=== PATIENT | male | born 1985 | race Two or more races ===

== ENCOUNTER 2025-03-15 16:18 | Emergency (ER) | payer MEDICAID, SELFPAY ==
[2025-03-15 16:33] VITALS: BP 147/98; PULSE 78; RESP 17; TEMP 36.4; O2SAT 95; BMI 29.0
--- NOTE | 2025-03-15 16:40 | XR_ITS ---
Examination: CT abdomen and pelvis without contrast. Coronal 3-D reconstructions. Sagittal 2-D reconstructions. Date and time of exam:March 15, 2025 1716 hours INDICATIONS: Onset right flank pain today CTDI: vol (mGy): 7.78 DLP: (mGycm): 482 Technique: Axial images of the abdomen have been obtained, 3 mm slice thickness Intravenous contrast material has not been administered. Low dose protocols were performed. One or more of the following dose reduction techniques were used; automated exposure control, adjustment of the mA and/or KV according to patient size, use of iterative reconstruction technique. Findings: No focal liver or splenic lesions No gallstones No pancreatic or adrenal mass Bilateral renal calculi ranging in size from 1 to 3 mm Mild right hydronephrosis, 3 mm distal right ureterovesical junction calculus Normal appendix Aorta normal size. No bowel obstruction No diverticulitis Contracted urinary bladder IMPRESSION: Mild right hydronephrosis secondary to 3 mm distal right ureterovesical junction calculus
--- NOTE | 2025-03-15 16:40 | PD.EDRME ---
Rapid Medical Screening Exam RME Arrival date/time: 03/15/25 16:18 39-year-old male with no known medical history presents to the emergency room with a chief complaint of right-sided flank pain that radiates down to his right groin x 1 day I have greeted and performed a focused initial assessment of this patient. A comprehensive ED assessment and evaluation of the patient, analysis of all test results, and completion of the medical decision making process will be conducted by additional ED providers. Chief Complaint: Abdominal Pain Time Seen by Provider: 03/15/25 16:28 Vital signs: Vital Signs Temperature 97.5 F 03/15/25 16:33 Pulse Rate 78 03/15/25 16:33 Respiratory Rate 17 03/15/25 16:33 Blood Pressure 147/98 H 03/15/25 16:33 Pulse Oximetry (%) 95 03/15/25 16:33 Oxygen Delivery Method Room Air 03/15/25 16:33 Vital signs reviewed by provider: Yes
[2025-03-15] MEDS: KETOROLAC INJ 60 MG/2 ML VIAL 30 MG IM (16:50)
[2025-03-15 17:32] LABS: Basophils # (Auto) 0.0 Thou/mm3 (0.0-0.2); Basophils % (Auto) 0 % (0-2.5); Eosinophils # (Auto) 0.0 Thou/mm3 (0.0-0.5); Eosinophils % (Auto) 0 % (0-10); Hematocrit 40.7 % (41.0-53.0); Hemoglobin 14.3 g/dL (13.5-16.0); Immature Granulocytes Auto 0.04 Thou/mm3 (0.00-0.00); Lymphocytes # (Auto) 1.4 Thou/mm3 (1.0-4.8); Lymphocytes % (Auto) 11 % (10-50); Mean Corpuscular HGB Conc 35.1 g/dl (31.0-37.0); Mean Corpuscular Hemoglobin 28.9 pg (25.0-35.0); Mean Corpuscular Volume 82 fL (80-100); Monocytes # (Auto) 0.8 Thou/mm3 (0.0-0.8); Monocytes % (Auto) 7 % (0-12); Neutrophils # (Auto) 10.0 Thou/mm3 (1.8-7.7); Neutrophils % (Auto) 81 % (37-80); Nucleated Red Blood Cell # 0.00 Thou/mm3 (0.00-0.00); Nucleated Red Blood Cell % 0 /100 WBC (0); Platelet Count 255 Thou/mm3 (140-440); RDW Standard Deviation 38.5 fL (35.1-43.9); Red Blood Count 4.95 Miln/mm3 (4.50-5.90); White Blood Count 12.4 Thou/mm3 (3.8-10.6)
[2025-03-15 17:44] LABS: Alanine Aminotransferase 52 U/L (10-49); Albumin, Serum 4.5 gm/dL (3.5-5.0); Albumin/Globulin Ratio 1.6 (1.2-2.2); Alkaline Phosphatase 92 U/L (46-116); Anion Gap 5 (7-16); Aspartate Amino Transferase 30 U/L (0-34); BUN/Creatinine Ratio 8 Ratio (12-20); Bilirubin,Total 1.2 mg/dL (0.3-1.2); Blood Urea Nitrogen 12 mg/dL (9-23); Calcium 9.5 mg/dL (8.3-10.6); Calcium (Corrected) 9.5 mg/dL (8.5-10.1); Carbon Dioxide 30.2 mMol/L (20.0-31.0); Chloride 108 mMol/L (98-107); Creatinine (Component) 1.6 mg/dL (0.6-1.3); Estimated Creatinine Clearance 65.0 mL/min (>60); Globulin 2.8 gm/dL (2.3-3.5); Glucose 116 mg/dL (74-106); Lipase 42 U/L (12-53); Osmolality,Calculated 285 (275-295); Potassium 4.3 mMol/L (3.4-5.1); Sodium 143 mMol/L (136-145); Total Protein 7.3 gm/dL (5.7-8.2); eGFR 55 See Note
[2025-03-15 17:45] LABS: Collection Type, Urine Clean Catch
[2025-03-15 18:21] VITALS: BP 151/93; PULSE 87; RESP 16; TEMP 36.7; O2SAT 96
--- NOTE | 2025-03-15 18:25 | EDNOTE_ITS ---
ED Abdominal Pain RME/HPI General Chief Complaint: Abdominal Pain Stated complaint: RIGHT LOWER ABD PAIN, VOMITING Time seen by provider: 03/15/25 16:28 Arrival date/time: 03/15/25 16:18 Limitations: no limitations RME / HPI RME / HPI narrative: 03/15/25 16:18 39-year-old male with no known medical history presents to the emergency room with a chief complaint of right-sided flank pain that radiates down to his right groin x 1 day I have greeted and performed a focused initial assessment of this patient. A comprehensive ED assessment and evaluation of the patient, analysis of all test results, and completion of the medical decision making process will be conducted by additional ED providers. ------- Dr. Martini?s Main ED Evaluation: 39yo male presents to the ED for a chief comp laint of right flank pain x this morning. Patient reports associated vomiting and chills. He denies any diarrhea, fever, hematuria or any other associated symptoms. Denies any history of similar symptoms. NKA. Related Data Previous Rx's ?Medication ?Instructions ?Recorded acetaminophen 650 mg 650 mg PO Q8H PRN fever or p ain 02/23/22 tablet,extended release #30 tabs ibuprofen 600 mg tablet 600 mg PO Q8H PRN fever or p ain 02/23/22 #30 tabs diphenhydramine HCl 25 mg capsule 25 mg PO TID PRN abd ominal pain 03/15/25 (Allergy (diphenhydramine)) #20 caps tamsulosin 0.4 mg capsule (Flomax) 0.8 mg (2 x 0.4 mg) PO QDAY 7 days 03/15/25 #14 caps Allergies Allergy/AdvReac Type Severity Reaction Status Date / Time No Known Allergies Allergy Verified 03/15/25 16:19 Review of Systems Review of Systems Systems Reviewed: All systems reviewed, normal except as documented Past Medical History Past Medical History CARDIAC: Negative Congestive Heart Failure RESPIRATORY: Negative Chronic Obstructive Pulmonary Disease (COPD) GENITOURINARY: Negative Renal Disease ENDOCRINE: Negative Diabetes Mellitus Type 1 or Diabetes Mellitus Type 2 Social History SMOKING STATUS: Current every day smoker ED Exam General Limitations: Present no limitations General appearance: Present alert and in no apparent distress Head Head exam: Present atraumatic Eye Eye exam: Present normal appearance, PERRL and EOMI ENT ENT exam: Present normal exam, normal oropharynx and mucous membranes moist Neck Neck exam: Present normal inspection, full ROM and trachea midline Chest Chest inspection: Present normal inspection and symmetric chest wall rise Respiratory Respiratory exam: Present normal lung sounds bilaterally Cardiovascular Cardiovascular exam: Present regular rate, normal rhythm and normal heart sounds Abdominal Exam Abdominal exam: Present soft and normal bowel sounds Extremities Exam Extremities exam: Present normal inspection and full ROM Back Exam Back exam: Present normal inspection and full ROM Neurological Exam Neurological exam: Present alert, oriented X3 and CN II-XII intact Psychiatric Psychiatric exam: Present normal affect and normal mood Skin Skin exam: Present warm, dry, intact and normal color Course Quality Measures none Orders Category Date Time Status CT abdomen pelvis wo con Stat Exams 03/15/25 16:40 Completed CBC Stat Lab 03/15/25 17:05 Completed CMP [Comprehensive Metabolic Panel] Stat Lab 03/15/25 17:05 Completed Lipase Stat Lab 03/15/25 17:05 Completed UA [Urinalysis] Stat Lab 03/15/25 17:33 Received Urine Culture Stat Lab 03/15/25 17:33 Received Ketorolac Inj [Toradol Inj] Med 03/15/25 16:40 Discontinued 30 mg IM X1 ONE Vital Signs Vital signs: Vital Signs Temperature 97.5 F 03/15/25 16:33 Pulse Rate 78 03/15/25 16:33 Respiratory Rate 17 03/15/25 16:33 Blood Pressure 147/98 H 03/15/25 16:33 Pulse Oximetry (%) 95 03/15/25 16:33 Oxygen Delivery Method Room Air 03/15/25 16:33 Abdominal Pain MDM MDM Narrative MDM Narrative:: Scribe Attestation: 03/15/25 Maryjane Fong am scribing for and in the presence of Dr. Martini. Patient's pain is likely secondary to kidney stone. CT shows 3 mm stone, which should pass on its own. Creatinine is 1.6. 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 Patient is encouraged to increased his water intake to 2L/day. Patient is stable to be discharged home. Will send patient a prescription for Flomax and Benadryl to his pharmacy. Patient data External records reviewed:: [facility] previous records (Per chart review, patient has no relevant previous ED visits.) Clinical information provided by:: patient Social determinants that could affect healthcare access:: none Patient has the following chronic illnesses:: none How is presenting disease/condition affected by chronic disease/condition?: no chronic disease Evaluation data The following diagnostics were reviewed and interpreted by me:: lab results and radiology exam(s) Lab and/or radiology exams considered but not ordered:: none Interpretation Summary: [facility] Report Signed Patient: FRANCIS PIERSON Record#: [id number] Birthdate: 1985 Age/Sex: 39 / M Location: [facility] Attending Dr: Ordering Physician: Chetan Garcia Date of Service: 03/15/25 Procedure(s): CT abdomen pelvis wo con Accession Number(s): [id number] cc: Chetan Garcia; Samuel Cabral MD; NO PRIMARY/FAMILY,PHYSICIAN~ Examination: CT abdomen and pelvis without contrast. Coronal 3-D reconstructions. Sagittal 2-D reconstructions. Date and time of exam:March 15, 2025 1716 hours INDICATIONS: Onset right flank pain today CTDI: vol (mGy): 7.78 DLP: (mGycm): 482 Technique: Axial images of the abdomen have been obtained, 3 mm slice thickness Intravenous contrast material has not been administered. Low dose protocols were performed. One or more of the following dose reduction techniques were used; automated exposure control, adjustment of the mA and/or KV according to patient size, use of iterative reconstruction technique. Findings: No focal liver or splenic lesions No gallstones No pancreatic or adrenal mass Bilateral renal calculi ranging in size from 1 to 3 mm Mild right hydronephrosis, 3 mm distal right ureterovesical junction calculus Normal appendix Aorta normal size. No bowel obstruction No diverticulitis Contracted urinary bladder IMPRESSION: Mild right hydronephrosis secondary to 3 mm distal right ureterovesical junction calculus Dictated By: Samuel Cabral MD Signed By: <Electronically signed by Samuel Cabral MD in [place]> 03/15/25 3102 Medications / Prescriptions Medications or Prescriptions considered but not ordered:: none Medication administrations:: Medication Administration History Discontinued Medications Ketorolac Tromethamine (Ketorolac Inj 60 Mg/2 Ml Vial) 30 mg IM X1 ONE Stop: 03/15/25 16:41 Last Admin: 03/15/25 16:50 Dose: 30 mg Documented By: see above Consultations Consultation(s) initiated? (list below): No Diagnosis Differential diagnosis abdominal pain: diverticulitis and other (renal colic, pyelonephritis, cholelithiasis, cholecystitis) Most likely diagnosis given after review of the tests above:: see clinical impression below Admission Indicated Admission indicated?: not indicated Admission Request Was there a request for admission?: No Disposition Plan Disposition Plan: Discharge Discharge Attestation Discharge Attestation: The patient and all family members were given an opportunity to ask questions and understood the discharge instructions. Discharge instructions specifically effects, indications for sooner follow up or return to the emergency department, and the expected course of current diagnosis. Patient condition: Stable Discharge Plan Plan Patient Disposition: HOME (Self Care) Prescriptions/Referrals Prescriptions/Med Rec: New diphenhydramine HCl [Allergy (diphenhydramine)] 25 mg capsule 25 mg PO TID PRN (Reason: abdominal pain) Qty: 20 0RF tamsulosin [Flomax] 0.4 mg capsule 0.8 mg PO QDAY 7 Days Qty: 14 0RF No Action acetaminophen 650 mg tablet extended release 650 mg PO Q8H PRN (Reason: fever or pain) Qty: 30 0RF Rx Instructions: swallow whole; do not chew/break/dissolve/open ibuprofen 600 mg tablet 600 mg PO Q8H PRN (Reason: fever or pain) Qty: 30 0RF Referrals: No Primary/Family,Physician [Primary Care Provider] - In 1 week Problem List Clinical Impression: Calculus of kidney, Renal colic on right side Patient/Caregiver Discharge Instructions Education Materials: ED Kidney Stone Undescended No ..., ED Kidney Stone w/ Colic Additional Instructions: You have chronic kidney disease due to ibuprofen Do not take any more ibuprofen Make sure to follow-up with your doctor in the next 3 to 5 days regarding the kidney stone Print Language: Tristanian Stand Alone Forms: [facility] Award Info., Patient Portal Info Letter
[2025-03-15 18:41] LABS: Amorphous Crystals,Urine Present (Absent); Bilirubin,Urine Negative (Negative); Blood,Urine 3+ (Negative); Clarity,Urine Turbid (Clear/Hazy); Color,Urine Yellow (Lt Yel-Yel); Glucose, Urine Negative (Negative); Ketones,Urine Negative (Negative); Leukocyte Esterase,Urine Negative (Negative); Nitrite,Urine Negative (Negative); PH,Urine 6.0 (5.0-7.0); Protein,Urine 1+ (Neg - Trace); RBC,Urine 351 /hpf (0-3); Specific Gravity,Urine 1.032 (1.001-1.035); Squamous Epithelial Cell,Urine < 1 /hpf (0-5); Urobilinogen,Urine Negative mg/dL (0.0-1.0); WBC,Urine 5 /hpf (0-5)
[2025-03-15 18:42] LABS: Sperm,Urine Present
[2025-03-15] MEDS: TAMSULOSIN HCL 0.4 MG CAPSULE 0.8 MG PO (18:43)
== END 2025-03-15 18:52 | disposition home or self-care (01) ==
PROVIDERS: Nurse Practitioner Family; Emergency Provider Emergency Medicine
DX: N13.2 Hydronephrosis with renal and ureteral calculous obstruction (principal)
CPT/HCPCS: 36415; 74176; 80053; 81001; 83690; 85025; 87086; 96372; 99283; J1200; J1885; A9270